=== PATIENT | female | born 1995 | race Caucasian/White ===

== ENCOUNTER 2016-10-27 21:52 | Emergency (ER) | payer OTHER ==
[~2016-10-27] VITALS: Ht 157.5 cm; Wt 59.0 kg
--- NOTE | 2016-10-27 22:05 | NUR ---
pt ambulatory to er bed 09. c/o luq abdominal pain r/t back . sudden onset x 4 hours worst after she ate. nausea no vomiting. no diarrhea. 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 awaitingmd eval.
--- NOTE | 2016-10-27 22:43 | NUR ---
iv line started blood drawn and sent to lab.
[2016-10-27] MEDS ORDERED: HYDROMORPHONE 1 MG/1 ML DISP.SYRIN ONE (22:49)
[2016-10-27] MEDS ORDERED: ONDANSETRON HCL/PF 4 MG/2 ML VIAL ONE (22:49)
--- NOTE | 2016-10-27 22:49 | NUR ---
dr milan at bedside for eval.
[2016-10-27] MEDS ORDERED: HYDROMORPHONE INJ 2 MG/ML DISP.SYRIN IV ONE (23:00)
[2016-10-27] MEDS ORDERED: ONDANSETRON HCL/PF 4 MG/2 ML VIAL IVP ONE (23:00)
[2016-10-27 23:09] LABS: CALCIUM, SERUM 8.8 mg/dL (8.5-10.1); CREATININE 0.7 mg/dL (0.6-1.3); POTASSIUM 4.4 mmol/L (3.5-5.1)
[2016-10-27 23:11] LABS: INR 1.04 (0.87-1.13); PROTHROMBIN TIME 11.2 SECS (9.5-12.7)
[2016-10-27 23:16] LABS: BILIRUBIN,DIRECT 0.1 mg/dL (0.0-0.2); BILIRUBIN,TOTAL 0.7 mg/dL (0.2-1.0); TOTAL PROTEIN, SERUM 7.8 g/dL (6.4-8.2)
[2016-10-27 23:32] LABS: HEMATOCRIT 44 % (33-45); HEMOGLOBIN 14.9 g/dL (11.5-14.8); MEAN CORPUSCULAR HEMOGLOBIN 31 PG (26.0-33.0); MEAN CORPUSCULAR HGB CONC 34 g/dl (31.0-36.0); MEAN CORPUSCULAR VOLUME 92 fL (82-100); PLATELET COUNT (AUTO) 285 /CMM (150-450); RDW COEFFICIENT OF VARIATION 12.6 (11.5-15.0); RED BLOOD CELL COUNT(AUTO) 4.74 MIL/uL (4.0-5.2); WHITE BLOOD COUNT (AUTO) 14.6 K/uL (4.3-11.0)
[2016-10-27 23:33] LABS: BASOPHILS % (AUTO) 0.3 % (0.0-2.0); EOSINOPHILS % (AUTO) 0.9 % (0.0-6.0); LYMPHOCYTES % (AUTO) 19.4 % (20.0-44.0); MONOCYTES % (AUTO) 3.4 % (2.0-12.0)
--- NOTE | 2016-10-28 00:50 | NUR ---
Patient discharged to home in stable condition. Written and verbal after care instructions given. Patient verbalizes understanding of instruction.IV removed. Catheter intact and site benign. Pressure and 4x4 applied to site. No bleeding noted.
[2016-10-28 00:51] VITALS: BP 123/77
== END 2016-10-28 00:52 | disposition home or self-care (01) ==
LOC: ER 21:54
DX: R10.13 Epigastric pain (principal); F17.210 Nicotine dependence, cigarettes, uncomplicated; Z71.6 Tobacco abuse counseling; Z90.89 Acquired absence of other organs
CPT/HCPCS: 36415; 76705; 80048; 80076; 83690; 84703; 85025; 85730; 93005; 96374; 96375; 99285; A4606; J1170; J2405; Z7610

== ENCOUNTER 2017-09-07 19:34 | Emergency (ER) | payer OTHER ==
[~2017-09-07] VITALS: Ht 157.5 cm; Wt 59.0 kg
--- NOTE | 2017-09-07 19:34 | NUR ---
"ABD PAIN X3 DAYS; GETTING WORSE" A/OX4 ABLE TO MAKE NEEDS KNOWN. VSS NAD GRASPING RUQ SITE. WILL CONTINUE TO MONITOR FOR ANY CHANGES DURING THE SHIFT.
[2017-09-07] MEDS ORDERED: MORPHINE SULFATE INJ 4 MG/ML DISP.SYRIN ONE (20:30)
[2017-09-07 20:35] LABS: BASOPHILS % (AUTO) 0.4 % (0.0-2.0); EOSINOPHILS % (AUTO) 1.2 % (0.0-6.0); HEMATOCRIT 42 % (33-45); HEMOGLOBIN 14.2 g/dL (11.5-14.8); LYMPHOCYTES # (AUTO) 3.1 /CMM (0.8-4.8); LYMPHOCYTES % (AUTO) 26.7 % (20.0-44.0); MEAN CORPUSCULAR HGB CONC 34 g/dl (31.0-36.0); MEAN CORPUSCULAR VOLUME 92 fL (82-100); MONOCYTES # (AUTO) 0.6 /CMM (0.1-1.30); MONOCYTES % (AUTO) 4.9 % (2.0-12.0); NEUTROPHILS % (AUTO) 66.8 % (43.0-81.0); PLATELET COUNT (AUTO) 253 /CMM (150-450); RDW COEFFICIENT OF VARIATION 11.6 (11.5-15.0); RED BLOOD CELL COUNT(AUTO) 4.56 MIL/uL (4.0-5.2); WHITE BLOOD COUNT (AUTO) 11.8 K/uL (4.3-11.0)
[2017-09-07] MEDS: IV NS 0.9% 1,000 ML BAG IV ONE (20:35)
[2017-09-07] MEDS: MORPHINE SULFATE INJ 2 MG/ML DISP.SYRIN IV ONE (20:36)
[2017-09-07 20:46] LABS: APPEARANCE,URINE Clear (CLEAR); BILIRUBIN,URINE Negative (NEGATIVE); BLOOD, URINE Negative Ery/uL (NEGATIVE); COLOR,URINE Yellow (YELLOW); KETONES,URINE Negative (NEGATIVE); LEUKOCYTE ESTERASE ,URINE Negative (NEGATIVE); NITRITE, URINE Negative (NEGATIVE); PH,URINE 7.5 (5.0-8.0); PROTEIN,URINE Negative (NEGATIVE); UGLUCOSE Negative (NEGATIVE); UROBILINOGEN,URINE 0.2 EU/dL (0.2)
[2017-09-07 20:54] LABS: ALBUMIN 3.9 g/dL (3.4-5.0); BILIRUBIN,DIRECT 0.1 mg/dL (0.0-0.2); BILIRUBIN,TOTAL 0.8 mg/dL (0.2-1.0); CALCIUM, SERUM 8.8 mg/dL (8.5-10.1); POTASSIUM 3.8 mmol/L (3.5-5.1); TOTAL PROTEIN, SERUM 7.1 g/dL (6.4-8.2)
[2017-09-07 21:01] LABS: CREATININE 0.6 mg/dL (0.6-1.3)
[2017-09-07 21:35] LABS: INR 1.02 (0.87-1.13)
[2017-09-07 21:45] VITALS: BP 118/64
== END 2017-09-07 21:52 | disposition home or self-care (01) ==
LOC: ER 19:35
DX: K58.0 Irritable bowel syndrome with diarrhea (principal); F17.210 Nicotine dependence, cigarettes, uncomplicated; Z90.89 Acquired absence of other organs
CPT/HCPCS: 36415; 80048-TC; 80076-TC; 81000-TC; 84703-TC; 85025-TC; 85730-TC; A4606; J2270; J7030; Z7610